=== PATIENT | female | born 1985 | race Caucasian/White ===

== ENCOUNTER 2019-05-11 05:39 | Inpatient (IN) | payer MEDICAID ==
[2019-05-11] MEDS ORDERED: OXYTOCIN 30 UNITS/LR 500 ML IV ×3 (06:00→09:00)
[2019-05-11] MEDS ORDERED: CARBOPROST 250 MCG INJ IM ×2 (06:00→09:00)
[2019-05-11] MEDS ORDERED: MISOPROSTOL 200 MCG TAB PR ×2 (06:00→09:00)
[2019-05-11] MEDS ORDERED: METHYLERGONOVINE 0.2 MG INJ IM ×2 (06:00→09:00)
[2019-05-11] MEDS ORDERED: OXYTOCIN 10 UNIT INJ (07:41)
[2019-05-11] MEDS ORDERED: OXYTOCIN 30 UNITS/LR 500 ML BAG IV (07:41)
[2019-05-11] MEDS ORDERED: ONDANSETRON 4 MG INJ (07:41)
[2019-05-11] MEDS ORDERED: morphine SULFATE/PF (10 MG/10 ML) INJ (07:41)
[2019-05-11] MEDS ORDERED: PHENYLephrine 10 MG INJ (08:22)
[2019-05-11] MEDS ORDERED: METOCLOPRAMIDE 10 MG INJ (08:24)
[2019-05-11] MEDS ORDERED: NACL 0.9% 3 ML SYG IV (09:00)
[2019-05-11] MEDS ORDERED: morphine 2 MG INJ IV (09:00)
[2019-05-11] MEDS ORDERED: NALOXONE (0.4 MG/ML) INJ IV (09:00)
[2019-05-11] MEDS ORDERED: DIPHENHYDRAMINE 50 MG INJ IV (09:00)
[2019-05-11] MEDS: OXYTOCIN 30 UNITS/LR 500 ML IV ×2 (09:06→13:14)
[2019-05-11] MEDS: IBUPROFEN 600 MG TAB PO ×2 (12:00→18:00)
[2019-05-11] MEDS: CEFAZOLIN 2 GM/50 ML (PMX) 50 ML IVPB ×3 (13:04→22:39)
[2019-05-11] MEDS: LACTATED RINGER'S 1,000 ML IV ×3 (13:16→22:48)
[2019-05-11] MEDS: KETOROLAC 30 MG INJ IV (22:48)
[2019-05-12] MEDS: CEFAZOLIN 2 GM/50 ML (PMX) 50 ML IVPB (05:40)
[2019-05-12] MEDS: LACTATED RINGER'S 1,000 ML IV ×2 (05:44→13:44)
[2019-05-12] MEDS: IBUPROFEN 600 MG TAB PO ×4 (06:00→17:22)
[2019-05-12] MEDS: OXYCODONE/ACETAMINOPHEN (5/325) TAB PO (09:00)
[2019-05-12] MEDS: LANOLIN HPA 1 PKT TOP (14:11)
[2019-05-13] MEDS: FERROUS SULFATE (EC) 325 MG TAB PO ×3 (00:21→20:22)
[2019-05-13] MEDS: IBUPROFEN 600 MG TAB PO ×5 (00:21→23:40)
[2019-05-13] MEDS: LACTATED RINGER'S 1,000 ML IV (00:44)
[2019-05-13] MEDS: BISACODYL 10 MG SUPP PR (14:40)
[2019-05-13] MEDS: OXYCODONE/ACETAMINOPHEN (5/325) TAB PO (19:14)
[2019-05-14] MEDS: OXYCODONE/ACETAMINOPHEN (5/325) TAB PO (06:23)
[2019-05-14] MEDS: IBUPROFEN 600 MG TAB PO ×2 (06:23→12:27)
[2019-05-14] MEDS: FERROUS SULFATE (EC) 325 MG TAB PO (09:09)
== END 2019-05-14 13:13 | disposition home or self-care (01) | DRG 788 ==
LOC: L-D 05:39 → PP1 05-13 17:15 → L-D 07:30 → MS1 12:57
PROC: 10907ZC Drainage of Amniotic Fluid, Therapeutic from Products of Conception, Via Natural or Artificial Opening (ICD-10-PCS; principal; 2019-05-11 07:30)
PROC: 10D00Z1 Extraction of Products of Conception, Low, Open Approach (ICD-10-PCS; 2019-05-11 07:30)
DX: O34.211 Maternal care for low transverse scar from previous cesarean delivery (principal); Z37.0 Single live birth; Z3A.39 39 weeks gestation of pregnancy
CPT/HCPCS: 85025; 85610; 85730; 86592; 86850; 86900; 86901; 87340; 99464